=== PATIENT | female | born 1950 | race Caucasian/White ===

== ENCOUNTER → 2018-08-31 | Outpatient (CLI) | payer MEDICARE, OTHER ==
[~2018-08-31] MED LIST: BENADRYL ALLERG25 M2 PO; FISH OIL CONCEN1 SG2 PO; FLONASEALLERGY; LIPITOR 10MG10 MG PO; MULTIPLE VITAMI1 CAP PO; NORVASC 5MG5 MG/TAB PO; PRINZIDE 25 MG-1 TAB PO
== END ==
LOC: MC.RAD 08:26
DX: Z12.31 Encounter for screening mammogram for malignant neoplasm of breast (principal)